=== PATIENT | male | born 1955 | race Caucasian/White ===

== ENCOUNTER 2020-11-18 11:23 | Day surgery (SDC) | payer MEDICARE, MEDICAID ==
[2020-11-16 11:18] LABS: ALANINE AMINOTRANSFERASE 16 U/L (12-78); ALBUMIN 4.2 g/dL (3.4-5.0); CALCIUM 9.2 mg/dL (8.5-10.1); CHLORIDE 107 mmol/L (98-107); CREATININE 0.87 mg/dL (0.7-1.3)
[2020-11-16 11:21] LABS: ALKALINE PHOSPHATASE 77 U/L (45-117); BILIRUBIN,TOTAL 0.8 mg/dL (0.2-1.0)
[2020-11-16 11:25] LABS: ANION GAP 5 mmol/L (5-15)
[~2020-11-18] VITALS: Ht 177.8 cm; Wt 72.0 kg
[~2020-11-18 11:23] MED LIST: IBUP200C8 PO
[2020-11-18 11:35] VITALS: BP 134/71
[2020-11-18] MEDS ORDERED: LACTATED RINGERS 1,000 ML IV SCH (12:00)
[2020-11-18] MEDS ORDERED: CHLORHEXIDINE 15 ML UDC MM ONE (12:00)
[2020-11-18] MEDS ORDERED: MIDAZOLAM 1 MG/ML, 2ML ONE (12:47)
[2020-11-18] MEDS ORDERED: FENTANYL PF 100 MCG/2ML ONE ×3 (12:47→14:26)
[2020-11-18] MEDS ORDERED: BUPIVACAINE/PF 0.5% ONE (12:51)
[2020-11-18] MEDS ORDERED: LIDOCAINE/PF 1%, 30ML ONE (12:52)
[2020-11-18] MEDS ORDERED: VANCOMYCIN 1,000 MG ONE (12:56)
[2020-11-18] MEDS ORDERED: OXYcodone 5 MG/5 ML ORAL.SOL UDC PO PRN (13:00)
[2020-11-18] MEDS ORDERED: ACETAMINOPHEN 325 MG TABLET PO PRN (13:00)
[2020-11-18] MEDS ORDERED: EPHEDRINE 50 MG/ML, 1ML IVPush PRN (13:00)
[2020-11-18] MEDS ORDERED: HYDROmorphone 1 MG/ML, 1ML INJ IVPush PRN (13:00)
[2020-11-18] MEDS ORDERED: hydrALAzine 20 MG/ML, 1ML IV PRN (13:00)
[2020-11-18] MEDS ORDERED: PROMETHAZINE 25 MG/ML, 1ML IVPush PRN (13:00)
[2020-11-18] MEDS ORDERED: ONDANSETRON 2MG/ML, 2ML IVPush PRN (13:00)
[2020-11-18] MEDS ORDERED: LABETALOL 5MG/ML, 20ML IV PRN (13:00)
[2020-11-18] MEDS ORDERED: LIDOCAINE-MPF 2% ,5ML ONE (13:21)
[2020-11-18] MEDS ORDERED: KETOROLAC 30 MG/1 ML ONE (13:21)
[2020-11-18] MEDS ORDERED: PROPOFOL 10 MG/ML, 20ML ONE (13:23)
[2020-11-18] MEDS ORDERED: DEXAMETHASONE 4 MG/ML, 1ML ONE (13:23)
[2020-11-18] MEDS ORDERED: ONDANSETRON 2MG/ML, 2ML ONE (13:23)
[2020-11-18] MEDS ORDERED: SUCCINYLCHOLINE 20 MG/ML, 10ML ONE (13:23)
[2020-11-18] MEDS: FENTANYL PF 100 MCG/2ML IV PRN ×3 (14:02→14:27)
[2020-11-18] MEDS ORDERED: ACETAMINOPHEN 650 MG/20.3 ML UDC ONE (14:14)
[2020-11-18] MEDS ORDERED: OXYcodone 5 MG/5 ML ORAL.SOL UDC ONE (14:14)
== END 2020-11-18 16:00 | disposition home or self-care (01) ==
LOC: OUT 11:23
PROVIDERS: ATTEND Orthopaedic Surgery
DX: T81.31XA Disruption of external operation (surgical) wound, not elsewhere classified, initial encounter (principal); M76.62 Achilles tendinitis, left leg; M19.072 Primary osteoarthritis, left ankle and foot; I08.0 Rheumatic disorders of both mitral and aortic valves; I10 Essential (primary) hypertension; E78.5 Hyperlipidemia, unspecified; E11.9 Type 2 diabetes mellitus without complications; I25.2 Old myocardial infarction; I25.5 Ischemic cardiomyopathy; Z20.822 Contact with and (suspected) exposure to COVID-19; Z79.1 Long term (current) use of non-steroidal anti-inflammatories (NSAID); Z79.891 Long term (current) use of opiate analgesic; Z79.899 Other long term (current) drug therapy; Z87.891 Personal history of nicotine dependence; Z88.2 Allergy status to sulfonamides; Z95.1 Presence of aortocoronary bypass graft; Z98.890 Other specified postprocedural states; Z82.49 Family history of ischemic heart disease and other diseases of the circulatory system; Y83.8 Other surgical procedures as the cause of abnormal reaction of the patient, or of later complication, without mention of misadventure at the time of the procedure; Y92.89 Other specified places as the place of occurrence of the external cause
CPT/HCPCS: 13160; 36415; 80053; 82962; 87070; 87075; 87077; 87186; 87205; 88305; 93005; C8929; J0330; J1100; J1885; J2250; J2405; J2704; J3010; J3370; J7120; Q9957; U0003

== ENCOUNTER → 2021-01-27 | Outpatient (CLI) | payer MEDICARE, MEDICAID | END | disposition home or self-care (01) | LOC: CFH 12:21 | PROVIDERS: ATTEND Registered Nurse | DX: I21.09 ST elevation (STEMI) myocardial infarction involving other coronary artery of anterior wall (principal); R29.898 Other symptoms and signs involving the musculoskeletal system; I42.9 Cardiomyopathy, unspecified | CPT/HCPCS: 78452; 93017; A9502 ==